=== PATIENT | male | born 1955 | race Caucasian/White ===

== ENCOUNTER 2025-08-04 21:42 | Emergency (ER) | payer MEDICARE, MEDICAID, SELFPAY ==
[2025-08-04 21:45] VITALS: PULSE 74; RESP 19; O2SAT 93; BMI 31.9
[2025-08-04 21:46] VITALS: BP 131/82; PULSE 75; RESP 18; TEMP 36.6; O2SAT 98; BMI 28.8
[2025-08-04 22:00] VITALS: BP 110/76; PULSE 73; RESP 10; O2SAT 89
--- NOTE | 2025-08-04 22:25 | EDNOTE_ITS ---
Lower Extremity Injury RME/HPI General Chief Complaint: Hip Injury/Pain Stated Complaint: FALL Time Seen by Provider: 08/04/25 22:11 Arrival date/time: 08/04/25 21:42 RME / HPI RME / HPI Narrative: DR. ISBELL MAIN ED EVALUATION: Patient arrives via EMS from local rehab center who typically uses a walker presents after ground-level fall reportedly falling backwards onto his buttocks just [employer] DESIGN[employer] and c/o right hip pain. No head strike or LOC ? mild dementia. Reports pain with flexion of the right hip. No reported distal paresthesias. PMH: CVA, Diastolic CHF, MDD, PE, Generalized ANxiety, HTN, Right humeral fracture PSH: Non-contributory Allergies: Penicillin Social: Non-drinker, non-smoker. Related Data Previous Rx's ?Medication ?Instructions ?Recorded hydrocodone 5 mg-acetaminophen 325 1 tab PO Q6H PRN pa in #7 tabs 08/19/23 mg tablet ibuprofen 600 mg tablet 600 mg PO Q8H PRN pain #30 t abs 08/19/23 Allergies Allergy/AdvReac Type Severity Reaction Status Date / Time Penicillins Allergy Intermediate Swelling Verified 08/19/23 18:19 of Lip/Tongue/Throat Review of Systems Review of Systems Systems Reviewed: All systems reviewed, normal except as documented Past Medical History Past Medical History NEUROLOGIC: Positive Cerebrovascular Accident CARDIAC: Positive Congestive Heart Failure and Hypertension RESPIRATORY: Positive Pulmonary Embolism MUSCULOSKELETAL: Positive Fractures PSYCHO/SOCIAL: Positive Depression and Anxiety ED Exam Narrative Physical exam: GEN. APPEARANCE: The patient is alert awake oriented X-3 in no distress, lying down comfortably, does not look ill/toxic. Patient has good eye contact. Patient is cooperative. GCS 14/15, c/o right hip pain. VITALS: All vitals were reviewed and the pulse ox is 98% on room air which is normal according to my interpretation. HEENT: Normocephalic, atraumatic. Pupils are equal and reactive. Oral mucosa is moist. Patent Nares NECK: Supple, nontender, no thyromegaly, no meningismus, no JVD, no step offs CHEST: Symmetrical, atraumatic, and with equal expansion , Nontender on palpation no deformity and no crepitus. CARDIOVASCULAR: Heart regular rhythm no murmur or gallop rub or extra beats. LUNGS: Clear to auscultation bilaterally with symmetrical chest rise. No laboring tachypnea or wheezing. No intercostal subcostal retraction. No rales and no rhonchi. ABDOMEN: Soft, flat, nontender to palpation, no guarding or rebound tenderness. There are no abnormal masses palpated. Active and normal bowel sounds. EXTREMITIES: Right hip marked tenderness to right greater trochanteric region, grimace with any attempted ROM of right hip, distal function is intact. No edema. No cyanosis. Patient is able to move all other extremities well, with full ROM and good CSM. SKIN: Warm and dry, no jaundice or rashes noted. MUSCULOSKELETAL: No lubar or midline bony tenderness. There is no CVA tenderness. No paraspinal muscle spasm or tenderness. NEURO: Patient is RONQUILLO x 4, Cranial nerves II through XII grossly intact. There is no focal neurologic deficits noted. GCS is 15, PNS and [employer] appear grossly intact. PSYCHIATRIC: Patient is in normal mood and affect, cooperative, no SI or HI or hallucinations. Course Quality Measures none Orders Category Date Time Status XR hip RT w pelvis 2-3V Stat Exams 08/04/25 22:28 Completed CBC [CBC] Stat Lab 08/04/25 22:30 Completed CMP [Comprehensive Metabolic Panel] Stat Lab 08/04/25 22:30 Completed Urinalysis, C/S if Indicated Stat Lab 08/04/25 22:28 Ordered Morphine* Inj Med 08/04/25 22:29 Discontinued 4 mg IVP X1 ONE Morphine* Inj Med 08/05/25 02:31 Discontinued 4 mg IVP X1 ONE Ondansetron Inj [Zofran Inj] Med 08/04/25 22:29 Discontinued 4 mg IVP X1 ONE Sodium Chloride 0.9% 1000 ml [Ns] 1,000 ml Med 08/04/25 22:29 Discontinued IV 999 mls/hr Vital Signs Vital signs: Vital Signs Temperature 97.8 F 08/04/25 21:46 Pulse Rate 75 08/04/25 21:46 Respiratory Rate 18 08/04/25 21:46 Blood Pressure 131/82 H 08/04/25 21:46 Pulse Oximetry (%) 98 08/04/25 21:46 Oxygen Delivery Method Room Air 08/04/25 21:46 Extremity Injury, Lower MDM Narrative MDM Narrative:: Scribe Attestation: I, Tonaj Acosta, am scribing for and in the presence of Dr. Isbell. Provider Notation: Although this document has been carefully reviewed, there may still be some phonetic and other typographical errors. These errors are purely grammatical due to imperfections in the software program and should not be construed in any way to compromise the substance of the patient's medical care during this visit. 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 No head strike or LOC ? mild dementia. Please see PE findings. Laboratory markers demonstrated an HN of 12/38, Alkaline phosphatase of 164, coag profile normal. Serum chemistries demonstrate normal renal function, mildly elevated blood sugar of 128. Right hip routine XR demonstrates non-displaced right intertrochanteric fracture. Patient was treated with IV narcotic analgesics/anti-emetics with mild to moderate relief. Patient remained neurologically intact. Case discussed with Nai Iyer who accepted patient for orthopedic evaluation. Final diagnosis includes right intertrochanteric hip fracture. Patient data External records reviewed:: [facility] previous records (Reviewed prior ED records from 08/19/23. Patient was seen for Fracture of right shoulder.) Clinical information provided by:: patient and EMS Social determinants that could affect healthcare access:: housing (Rehab Center) Patient has the following chronic illnesses:: Cerebrovascular Accident, Congestive Heart Failure, Hypertension, Pulmonary Embolism, Fractures, Depression and Anxiety How is presenting disease/condition affected by chronic disease/condition?: exacerbated by Evaluation data The following diagnostics were reviewed and interpreted by me:: lab results and radiology exam(s) Lab and/or radiology exams considered but not ordered:: None Interpretation Summary: RADIOLOGY Hip X-Ray: FINDINGS: Acute intertrochanteric fracture right hip without significant displacement Left hip arthroplasty Bones of the pelvis intact IMPRESSION: Acute intertrochanteric fracture right hip. Medications / Prescriptions Medications or Prescriptions considered but not ordered:: None Medication administrations:: Medication Administration History Discontinued Medications Sodium Chloride (Ns) 1,000 mls @ 999 mls/hr IV .Q1H1M ONE Stop: 08/04/25 23:29 Last Infusion: 08/05/25 00:20 Dose: Infused Documented By: Admin: 08/04/25 23:13 Dose: 999 mls/hr Documented By: LIZ Morphine Sulfate (Morphine Sulf Inj 4 Mg/Ml Vial) 4 mg IVP X1 ONE Stop: 08/04/25 22:30 Last Admin: 08/04/25 23:12 Dose: 4 mg Documented By: LIZ Morphine Sulfate (Morphine Sulf Inj 4 Mg/Ml Vial) 4 mg IVP X1 ONE Stop: 08/05/25 02:32 Last Admin: 08/05/25 02:40 Dose: 4 mg Documented By: LIZ Ondansetron HCl (Ondansetron Inj 2 Mg/Ml Inj 2 Ml) 4 mg IVP X1 ONE; Protocol Stop: 08/04/25 22:30 Last Admin: 08/04/25 23:12 Dose: 4 mg Documented By: LIZ See above if any Consultations Consultation(s) initiated? (list below): Yes Consultation #1 (Physician, Specialty, Details): Discussed with [facility] for transfer. Reviewed the patient?s HPI, PMHx, lab and/or radiology results. Discussed treatment plan. Will consult a transfer. Time: 00:43 Consultation #2 (Physician, Specialty, Details): [facility] will accept patient for transfer should patient's daughter want patient to undergo repair. Will contact daughter. Time: 02:15 Diagnosis Extremity Injury, Lower Differential Diagnosis: ankle sprain and strain, acute internal derangement of knee, fracture of femur, fracture of hip and ankle fracture Most likely diagnosis given after review of the tests above:: Intertrochanteric fracture of right hip Admission Indicated Admission indicated?: not indicated Explain why admission is indicated or not indicated:: Pending transfer Admission Request Was there a request for admission?: No Disposition Plan Disposition Plan: Transfer Discharge Plan Plan Patient Disposition: [facility] Pt Being Transferred to: [facility] Service Needed for Transfer: Orthopedics Prescriptions/Referrals Prescriptions/Med Rec: No Action hydrocodone-acetaminophen 5-325 mg tablet 1 tab PO Q6H MDD 3 PRN (Reason: pain) Qty: 7 0RF ibuprofen 600 mg tablet 600 mg PO Q8H PRN (Reason: pain) Qty: 30 0RF Referrals: Peña Montaño MD [Primary Care Provider, Family Practice] - In 1 week Problem List Clinical Impression: Intertrochanteric fracture of right hip Patient/Caregiver Discharge Instructions Print Language: Arabic Stand Alone Forms: [employer] Award Info., Patient Portal Info Letter
--- NOTE | 2025-08-04 22:28 | XR_ITS ---
Examination: Right hip AP, lateral, AP pelvis 3 views Technique: Hip AP lateral, AP pelvis, 3 views Exam date and time: August 04, 2025, 1044 hours INDICATIONS: Ground-level fall today with injury to the right hip, right hip pain FINDINGS: Acute intertrochanteric fracture right hip without significant displacement Left hip arthroplasty Bones of the pelvis intact IMPRESSION: Acute intertrochanteric fracture right hip.
[2025-08-04 22:44] LABS: Basophils # (Auto) 0.0 Thou/mm3 (0.0-0.2); Basophils % (Auto) 0 % (0-2.5); Eosinophils # (Auto) 0.0 Thou/mm3 (0.0-0.5); Eosinophils % (Auto) 0 % (0-10); Hematocrit 38.2 % (41.0-53.0); Hemoglobin 12.6 g/dL (13.5-16.0); Immature Granulocytes Auto 0.03 Thou/mm3 (0.00-0.00); Lymphocytes # (Auto) 1.0 Thou/mm3 (1.0-4.8); Lymphocytes % (Auto) 11 % (10-50); Mean Corpuscular HGB Conc 33.0 g/dl (31.0-37.0); Mean Corpuscular Hemoglobin 29.6 pg (25.0-35.0); Mean Corpuscular Volume 90 fL (80-100); Monocytes # (Auto) 0.6 Thou/mm3 (0.0-0.8); Monocytes % (Auto) 7 % (0-12); Neutrophils # (Auto) 7.2 Thou/mm3 (1.8-7.7); Neutrophils % (Auto) 81 % (37-80); Nucleated Red Blood Cell # 0.00 Thou/mm3 (0.00-0.00); Nucleated Red Blood Cell % 0 /100 WBC (0); Platelet Count 163 Thou/mm3 (140-440); RDW Standard Deviation 41.7 fL (35.1-43.9); Red Blood Count 4.25 Miln/mm3 (4.50-5.90); White Blood Count 8.9 Thou/mm3 (3.8-10.6)
[2025-08-04 23:00] VITALS: BP 100/71; PULSE 68; RESP 14; O2SAT 91
[2025-08-04 23:01] LABS: Alanine Aminotransferase 33 U/L (10-49); Albumin, Serum 4.5 gm/dL (3.4-4.8); Albumin/Globulin Ratio 1.5 (1.2-2.2); Alkaline Phosphatase 164 U/L (46-116); Anion Gap 12 (7-16); Aspartate Amino Transferase 30 U/L (0-34); BUN/Creatinine Ratio 13 Ratio (12-20); Bilirubin,Total 0.4 mg/dL (0.3-1.2); Blood Urea Nitrogen 17 mg/dL (9-23); Calcium 9.7 mg/dL (8.3-10.6); Calcium (Corrected) 9.7 mg/dL (8.5-10.1); Carbon Dioxide 23.3 mMol/L (20.0-31.0); Chloride 103 mMol/L (98-107); Creatinine (Component) 1.3 mg/dL (0.6-1.3); Estimated Creatinine Clearance 53.8 mL/min (>60); Globulin 3.1 gm/dL (2.3-3.5); Glucose 128 mg/dL (74-106); Osmolality,Calculated 279 (275-295); Potassium 4.2 mMol/L (3.4-5.1); Sodium 138 mMol/L (136-145); Total Protein 7.6 gm/dL (5.7-8.2); eGFR 59 See Note
[2025-08-04] MEDS: MORPHINE SULF INJ 4 MG/ML VIAL IVP (23:12)
[2025-08-04] MEDS: ONDANSETRON INJ 2 MG/ML INJ 2 ML 4 MG IVP (23:12)
[2025-08-04] MEDS: SODIUM CHLORIDE 0.9% 1000 ML 1,000 ML 999 ML IV (23:13)
[2025-08-04 23:52] VITALS: BP 100/71; PULSE 85; RESP 16; TEMP 37; O2SAT 95
[2025-08-05] VITALS: BP 104/59; PULSE 86; RESP 17; O2SAT 93
--- NOTE | 2025-08-05 00:05 | PC.NURSE ---
Report called to RN pt taken to rm on monitor by RN.
--- NOTE | 2025-08-05 00:43 | PC.NURSE ---
Addendum entered by Fred Ma RN 08/05/25 00:47: [facility] WAS CONTACTED AT 2255 NOT 2000. Original Note: 1999 [facility] CONTACTED AND PKT SENT. LEFT MESSAGE. 0043 [facility] RETURNED CALL AT THIS TIME. TRN SPEAKING WITH DR Kim
[2025-08-05 01:00] VITALS: BP 93/65; PULSE 87; RESP 18; O2SAT 94
[2025-08-05] MEDS: MORPHINE SULF INJ 4 MG/ML VIAL IVP (02:40)
== END 2025-08-05 03:55 | disposition short-term general hospital (02) ==
PROVIDERS: Emergency Provider Emergency Medicine; PCP Family Medicine
DX: S72.141A Displaced intertrochanteric fracture of right femur, initial encounter for closed fracture (principal); W19.XXXA Unspecified fall, initial encounter; I11.0 Hypertensive heart disease with heart failure; F03.A4 Unspecified dementia, mild, with anxiety; F41.1 Generalized anxiety disorder
CPT/HCPCS: 36415; 73502; 80053; 81001; 85025; 99283; J2270; J2405; J7030